=== PATIENT | female | born 1990 | race Caucasian/White ===

== ENCOUNTER 2016-09-25 01:23 | Emergency (ER) | payer BC, OTHER | END 2016-09-25 05:58 | disposition left against medical advice (07) | LOC: ER1 01:23 | DX: Z53.21 Procedure and treatment not carried out due to patient leaving prior to being seen by health care provider (principal) ==

== ENCOUNTER 2020-09-06 08:40 | Observation (INO) | payer BC ==
[~2020-09-06] VITALS: Ht 175.3 cm; Wt 75.3 kg
[2020-09-06 17:51] LABS: HEMOGLOBIN 12.1 gm/dl (12.3-15.3); RED BLOOD COUNT 4.1 M/UL (4.00-5.10); WHITE BLOOD COUNT 5.7 K/UL (4.5-11.0)
[2020-09-06 18:21] LABS: BUN/CREATININE RATIO 9 (0-10)
[2020-09-07] MEDS ORDERED: CYCLOBENZAPRINE10 MG PO (17:06)
[2020-09-07] MEDS ORDERED: PERCOCET 10-321 EACH PO (17:06)
== END 2020-09-07 17:42 | disposition home or self-care (01) ==
LOC: ER1 08:40 → CDU 16:52 → MED SURG 4 16:52
PROVIDERS: ADMIT Internal Medicine
DX: M51.26 Other intervertebral disc displacement, lumbar region (principal); M51.27 Other intervertebral disc displacement, lumbosacral region; G89.29 Other chronic pain; Z20.822 Contact with and (suspected) exposure to COVID-19
CPT/HCPCS: 51701; 72131; 72148; 80053; 83735; 84703; 85025; 96372; 96374; 96375; 96376; 97162; 99285; G0378; J1170; J1650; J2405; U0002